=== PATIENT | female | born 1975 | race Caucasian/White ===

== ENCOUNTER 2017-07-21 05:41 | Day surgery (SDC) | payer OTHER ==
[~2017-07-21] VITALS: Ht 147.3 cm; Wt 80.0 kg
[~2017-07-21 05:41] MED LIST: BENA5TAB2 PO
[2017-07-21 06:39] VITALS: Ht 147.3 cm; Wt 80.0 kg
[2017-07-21] MEDS ORDERED: ZANTAC (06:45)
[2017-07-21] MEDS ORDERED: LISINOPRIL (06:45)
[2017-07-21 07:02] VITALS: BP 139/67; PULSE 82; RESP 18
--- NOTE | 2017-07-21 07:43 | OPPN ---
Date/Time of Note Date/Time of Note DATE: 07/21/17 TIME: 07:43 Operative Report Preoperative Diagnosis Abdominal pain Chronic heartburn Postoperative Diagnosis Small hiatal hernia and gastroesophageal reflux disease Gastritis with erosions Operation/Procedure Performed Esophagogastroduodenoscopy and biopsy Surgeon see signature line cleaner assistant None Anesthesia: moderate sedation Estimated blood loss: none Transfusion Required none Specimen Gastric mucosal biopsy Grafts/Implants none Complications none TONE TABARES MD Jul 21, 2017 07:43
[2017-07-21] MEDS ORDERED: MIDAZOLAM 1 MG/ML 2 ML INJ ONE (07:51)
[2017-07-21] MEDS ORDERED: FENTAnyl 50 MCG/ML VIAL ONE (07:52)
[2017-07-21 08:01] VITALS: BP 114/62; PULSE 71; RESP 17
--- NOTE | 2017-07-21 12:50 | GILP ---
DATE OF PROCEDURE: 07/21/2017 NAME OF PROCEDURES: Esophagogastroduodenoscopy and biopsy. SURGEON: Tone Lynch MD. PREOPERATIVE DIAGNOSES: 1. Abdominal pain. 2. Chronic heartburn. POSTOPERATIVE DIAGNOSES: 1. Small hiatal hernia with gastroesophageal reflux disease. 2. Gastritis with erosions. 3. Gastric mucosal biopsies were taken for Helicobacter pylori test. INDICATION FOR THE PROCEDURE: Ms. Lety Lozada is a 42-year-old female patient who had upper abdomin al pain and chronic heartburn, not responding to therapy. The patient was scheduled for endoscopic examination for further evaluation. The procedure and possible complications were well explained to the patient. The patient understood and consented to the procedure. DESCRIPTION OF PROCEDURE: Under the influence of fentanyl and Versed, the gastroscope was carefully introduced into the esophagus and under direct vision, it was advanced to the stomach and through t he pylorus into the duodenal bulb and descending duodenum. FINDINGS: ESOPHAGUS: The patient had small hiatal hernia and gastroesophageal reflux disease. STOMACH: She had gastritis with erosions. Gastric mucosal biopsies were taken for H. pylori test. DUODENUM: Normal. She tolerated the procedure very well and there was no complication from the procedure. At the end of the procedures, she was awake with stable vital signs and she was discharged home to the care of her family. IMPRESSION: Please see postoperative diagnoses. PLAN: 1. Omeprazole 40 mg p.o. q.a.m. 2. Await H. pylori test report. Dictated By: TONE CASPER/ZACKARY Conf#: [id number] DID#: [id number]
--- NOTE | 2017-07-22 09:31 | CONS ---
DATE OF ADMISSION: 07/21/2017 DATE OF CONSULTATION: TYPE OF CONSULTATION: Preoperative gastroenterology. Dear Dr. Juárez: I thank you very much for this kind referral. HISTORY OF PRESENT ILLNESS: Ms. Lety Lozada is a 42-year-old female patient who has been referred t o me for further evaluation of upper abdominal pain and chronic heartburn, not responding to therapy with Zantac. There is no past history of peptic ulcer disease, not on nonsteroidal anti-inflammato ry agents. Appetite is good. No weight loss. The patient is status post cholecystectomy. No hist ory of liver disease. Patient also complains of chronic diarrhea. No rectal bleeding. No past his tory of inflammatory bowel disease. She is hypertensive. Not a diabetic, no heart disease or lung problems. No kidney disease. Nonsmoker. No alcohol abuse. No family history of gastrointestinal tract neoplasm. ALLERGIES: NO DRUG ALLERGIES. MEDICATIONS: 1. Zantac. 2. Lisinopril. PHYSICAL EXAMINATION: VITAL SIGNS: She is 4 feet 10 inches tall and weighs 170 pounds, normal heart sounds. LUNGS: Clear. ABDOMEN: Soft. No masses. Normal bowel sounds. NEUROLOGIC: Normal. IMPRESSION: 1. Upper abdominal pain and chronic heartburn, not responding to therapy with Zantac. 2. History of chronic diarrhea. 3. The patient had stool studies done and they were negative. 4. Hypertension. 5. Status post cholecystectomy. PLAN: 1. Omeprazole 40 mg p.o. q.a.m. 2. Bentyl 10 mg p.o. t.i.d. p.r.n. for diarrhea. 3. Endoscopic examination for further evaluation. 4. If her diarrhea continues, we will consider colonoscopy at a later date. The procedure and possible complications were well explained to the patient. She understands and co nsents to the procedure. I thank you once again. With warmest personal regards, Dictated By: TONE CASPER/ZACKARY Conf#: [id number] DID#: [id number]
== END 2017-07-21 19:45 | disposition home or self-care (01) ==
LOC: GIL 05:41
PROVIDERS: ATTEND Internal Medicine Gastroenterology
DX: K44.9 Diaphragmatic hernia without obstruction or gangrene (principal); K29.70 Gastritis, unspecified, without bleeding
CPT/HCPCS: 43239; 84703; 87081; J2250; J3010; Z7610

== ENCOUNTER 2018-11-03 05:39 | Day surgery (SDC) | payer OTHER ==
[2018-11-03] VITALS (16 sets, daily range): BP systolic 122–140; BP diastolic 61–86; PULSE 60–82; RESP 17–18; Ht 152.4 cm; Wt 79.1 kg
[~2018-11-03] VITALS: Ht 152.4 cm; Wt 79.1 kg
[~2018-11-03 05:39] MED LIST changes: -BENA5TAB2 PO; +LISINOPRIL; +ZANTAC
[2018-11-03] MEDS ORDERED: [UNRECOGNIZED DRUG - CODE] PO (06:38)
[2018-11-03] MEDS ORDERED: BENA20TA4 PO (06:38)
[2018-11-03] MEDS ORDERED: FER325 PO (06:38)
[2018-11-03] MEDS ORDERED: OMEP40CA6 PO (06:38)
[2018-11-03] MEDS ORDERED: LIDOCAINE 2% (SDV) 5 ML INJ ONE (07:00)
[2018-11-03] MEDS ORDERED: ACETAMINOPHEN 500 MG TAB PO ONE (07:00)
[2018-11-03] MEDS ORDERED: LACTATED RINGER'S 1,000 ML IV* SCH (07:00)
--- NOTE | 2018-11-03 07:05 | PREAC ---
Date/Time of Note Date/Time of Note DATE: 11/03/18 TIME: 07:04 Anesthesia Eval and Record Evaluation Time Pre-Procedure Interview DATE: 11/03/18 TIME: 07:04 Age 43 Sex female NPO: 8 hrs Preoperative diagnosis uterine leiomyoma Planned procedure hysteroscopy, endometrial ablation Past Medical History Past Medical History: Includes (allergic rhinitis) Cardio: HTN GI: GERD (under control), Obesity Surgery & Anesthesia Issues No known issue Meds Anticoagulation: No Beta Rossi within 24 hr: No Reason Beta Rossi not given: Pt. not on B-Rossi Reported Medications Omeprazole* (Omeprazole*) 40 Mg Capsule.dr, 1 CAP PO DAILY 11/03/18 Acetaminophen (Pain Relief Extra Strength) 500 Mg Tablet, 1 TAB PO PRN for PAIN 11/03/18 Ferrous Sulfate* (Ferrous Sulfate*) 325 Mg Tabec, 1 TAB PO DAILY 11/03/18 Benazepril Hcl* (Benazepril Hcl*) 20 Mg Tablet, 20 MG PO DAILY, #30 TAB 11/03/18 [Lisinopril] No Conflict Check 07/21/17 Discontinued Reported Medications [Zantac] No Conflict Check 07/21/17 Current Medications Lactated Ringer's 1,000 ml @ 125 mls/hr Q8H IV* Last administered on 11/03/18at 06:16; Admin Dose 125 MLS/HR; Start 11/03/18 at 07:00 Meds reviewed: Yes Allergies Coded Allergies: No Known Allergies (Verified Allergy, 03/17/11) Allergies Reviewed: Yes Labs/Studies Labs Reviewed: Reviewed by anesthesiologist test: Negative Pre-procedure Exam Last vitals Vital Signs Date Temp Pulse Resp B/P (MAP) Pulse Ox O2 O2 Flow FiO2 Time Delivery Rate 11/03/18 97.0 76 18 130/86 95 Room Air 06:19 (101) Airway: Adequate mouth opening, Adequate thyromental dist Mallampati: Mallampati II Teeth: Normal Lung: Normal Heart: Normal ASA Physical Status ASA physical status: 2 Emergency: None Planned Anesthetic General/MAC: LMA Pre-operative Attestations Prior to commencing anesthesia and surgery, the patient was re-evaluated, there was verification of: *The patient's identity *The results of appropriate recent lab work and preoperative vital signs *The above evaluation not changing prior to induction *Anesthetic plan, risk benefits, alternative and complications discussed with patient/family; questions answered; patient/family understands, accepts and wishes to proceed. SUZETTE MACK Nov 03, 2018 07:05
--- NOTE | 2018-11-03 07:14 | HPN ---
Date/Time of Note Date/Time of Note DATE: 11/03/18 TIME: 07:14 Interval H&P Admission Note Pt. seen H&P reviewed: No system changes BROOKE DIEGO MD Nov 03, 2018 07:14
[2018-11-03] MEDS ORDERED: MIDAZOLAM 1 MG/ML 2 ML INJ ONE (07:22)
[2018-11-03] MEDS ORDERED: PROPOFOL 40 ML ONE (07:22)
[2018-11-03] MEDS ORDERED: FAMOTIDINE 20 MG INJ ONE (07:22)
[2018-11-03] MEDS ORDERED: CEFAZOLIN 1 GM INJ ONE (07:25)
[2018-11-03] MEDS ORDERED: FENTAnyl 50 MCG/ML VIAL ONE (07:25)
[2018-11-03] MEDS ORDERED: morphine (1 MG/ML) 10ML SYRINGE IV PRN ×2 (07:30)
[2018-11-03] MEDS ORDERED: FENTAnyl 50 MCG/ML VIAL IV PRN ×2 (07:30)
[2018-11-03] MEDS ORDERED: LABETALOL HCL 20MG INJ IV PRN (07:30)
[2018-11-03] MEDS ORDERED: ONDANSETRON 4 MG INJ IV PRN (07:30)
[2018-11-03] MEDS ORDERED: HYDROmorphONE 1 MG/5 ML IV SYRINGE IV PRN (07:30)
[2018-11-03] MEDS ORDERED: OXYCODONE/ACETAMINOPHEN (5/325) TAB PO PRN ×2 (07:30)
[2018-11-03] MEDS ORDERED: ALBUTEROL 0.083% (NEB) 2.5 MG/3 ML AMP HHN PRN (07:30)
[2018-11-03] MEDS ORDERED: MEPERIDINE 25 MG INJ IV PRN (07:30)
[2018-11-03] MEDS ORDERED: DIPHENHYDRAMINE 50 MG INJ IV PRN (07:30)
[2018-11-03] MEDS ORDERED: DEXAMETHASONE 4 MG/ML 5 ML INJ ONE (07:32)
[2018-11-03] MEDS ORDERED: ONDANSETRON 4 MG INJ ONE (07:32)
--- NOTE | 2018-11-03 08:26 | SIPON ---
Date/Time of Note Date/Time of Note DATE: 11/03/18 TIME: 08:24 Operative Report Preoperative Diagnosis uterine fibroids , menorrhagia Postoperative Diagnosis same as above Operation/Procedure Performed hysteroscopic hydrothermal ablation of endometrium Surgeon see signature line assistant branch manager rep from [employer] Anesthesia: general Estimated blood loss: none Transfusion Required none Specimen none Grafts/Implants none Complications none BROOKE DIEGO MD Nov 03, 2018 08:26
--- NOTE | 2018-11-03 08:28 | PD.PPDC ---
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
[2018-11-03] MEDS ORDERED: HYDROCODONE/APAP (7.5/325) TAB PO ONE (08:30)
--- NOTE | 2018-11-03 08:39 | PAC ---
Date/Time of Note Date/Time of Note DATE: 11/03/18 TIME: 08:38 Post-Anesthesia Notes Post-Anesthesia Note Last documented vital signs Vital Signs Date Temp Pulse Resp B/P Pulse Ox O2 O2 Flow FiO2 Time (MAP) Delivery Rate 11/03/18 97.0 98.5 76 77 18 17 130/86 95 100 Room 06:19 083 (101) 11 Air face 1 mask 6L Activity: WNL Respiratory function: WNL Cardiovascular function: WNL Mental status: Baseline Pain reasonably controlled: Yes Hydration appropriate: Yes Nausea/Vomiting absent: Yes SUZETTE MACK Nov 03, 2018 08:39
[2018-11-03] MEDS: HYDROmorphONE 1 MG/5 ML IV SYRINGE IV PRN ×2 (08:54→09:09)
--- NOTE | 2018-11-03 18:40 | OPR ---
DATE OF OPERATION: 11/03/2018 PREOPERATIVE DIAGNOSES: 1. Uterine fibroid. 2. Menorrhagia. POSTOPERATIVE DIAGNOSES: 1. Uterine fibroid. 2. Menorrhagia. No pathology. OPERATION PERFORMED: Hysteroscopic hydrothermal endometrial ablation. ANESTHESIA: General. ANESTHESIOLOGIST: SURGEON: Buzz Krishna MD COURT RECORDING MONITOR: [employer] [facility] and [employer] Andrzej. PROCEDURE IN DETAILS: Under the proper induction of general anesthesia, the patient was placed in do rsal lithotomy position. Perineal area and vagina wall was prepped and draped in usual aseptic georgiana r. Bimanual examination revealed no acute finding due to the body habitus. Weighted speculum was in troduced into the vagina. Cervix was identified. Anterior lip of the cervix was grasped with a sing le tooth tenaculum and the cervix was clear. Cavity was sounded which was 8 cm. Cervical os was dil ated up to 7 and operating table position was changed to reverse Trendelenburg according to the uteri ne access and then hysteroscope which was connected to the hydrothermal ablation kit. Saline was int roduced and the hysteroscope was prepared for the usual fashion and inserted into the cervix and push ed into the cavity further to visualize both ostium and fundus. After location instrument in the rig ht place and pressure check, there was no leaking. The cervix was tight. There is no leaking from t he cervix neither. The temperature was rising up to 80 and then entire endometrium was ablated for 1 0 minutes with 2 minutes of cooling in between the procedure. Multiple pictures pre and post-ablatio n were done. Endometrial ablation achieved and after the 2 minutes of cooling, the instrument was re moved slowly. Hysteroscopic finding revealed entire uterine cavity was ablated well up until the end ocervical canal which was intact. All the instruments were removed. Estimated blood loss was none. The patient withstood procedure well and was sent to the recovery room in stable condition. Sponge count and instrument counts were correct. Dictated By: BUZZ TOBIN/ZACKARY Conf#: [id number] DID#: [id number]
== END 2018-11-03 10:40 | disposition home or self-care (01) ==
LOC: SDS 05:39
PROVIDERS: ATTEND Obstetrics & Gynecology
DX: D25.9 Leiomyoma of uterus, unspecified (principal); N92.0 Excessive and frequent menstruation with regular cycle; I10 Essential (primary) hypertension; K21.9 Gastro-esophageal reflux disease without esophagitis; E66.9 Obesity, unspecified
CPT/HCPCS: 58563; 84703; J0690; J1100; J1170; J2250; J2405; J3010; Z7512; Z7610